=== PATIENT | female | born 1985 | race Caucasian/White ===

== ENCOUNTER 2016-04-10 06:31 | Emergency (ER) | payer OTHER ==
[~2016-04-10] VITALS: Ht 154.9 cm; Wt 67.2 kg
[2016-04-10 06:36] VITALS: TEMP 36.6
[2016-04-10] MEDS ORDERED: SODIUM CHLORIDE 0.9% 1000ML 1,000 ML IV STA (06:46)
[2016-04-10] MEDS ORDERED: KETOROLAC TROMETHAMINE 30 MG/ML VIAL IV STA (06:46)
[2016-04-10] MEDS ORDERED: ALBUT/IPRATROP 3MG/0.5MG NEB 3 ML VIAL INH STA (06:46)
--- NOTE | 2016-04-10 06:55 | EMERGENCY ROOM VISIT NOTE ---
History Report prepared by Esther: Ryan Barrera Under the Supervision of: Dr. Zen Sun D.O. First contact with patient: 06:40 Chief Complaint: RESPIRATORY PROBLEMS Stated Complaint: CHEST HURTS/BEEN SICK A COUPLE DAYS History of Present Illness The patient is a 30 year old female who presents to the Emergency Room with complaints of worsening respiratory problems that started this morning upon waking. She says that she woke up with bad chest pain that she describes as a tightness. Her right side hurts more than her left side. She also complains of shortness of breath. The patient notes that she has had cold symptoms for about a day or so. Her symptoms include a runny nose. She also had a bit of chest pain last night but this morning the pain is much worse. The patient has a bit of a cough. She said she had no problems sleeping last night, but she does sleep on her side. The patient's last menstrual period was 3 weeks ago. She uses control. She reports no major medical problems. The patient does not use tobacco products and does not drink alcohol. She has not had any surgeries. The patient does not have a history of clots in her lungs. Source of History: patient Onset: Upon waking this morning Position: other (global - respiratory problems) Quality: other (tightness) Timing: worsening Associated Symptoms: + SOB, + chest pain (right side more than left), + cough Note: Associated symptoms: Cold symptoms including runny nose. Review of Systems See HPI for pertinent positives & negatives. A total of 10 systems reviewed and were otherwise negative. Past Medical & Surgical Medical Problems: (1) Acute sinusitis (2) Urinary tract infection (3) Varicose vein of leg Surgical Problems: (1) No significant past surgical history Family History Cancer Diabetes mellitus Gallbladder disease Stroke Social History Smoking Status: Never Smoker Alcohol Use: none Drug Use: none Marital Status: Housing Status: lives with family Occupation Status: employed Current/Historical Medications Scheduled Albuterol Hfa (Ventolin Hfa), 1 PUFF INH Q4 Control Pills ( Control Pills), 1 TAB PO QPM Lorazepam (Ativan), 0.5 MG PO PRN UD Scheduled PRN Pantoprazole (Protonix), 20 MG PO DAILY PRN for ACID REFLUX Allergies Coded Allergies: No Known Allergies (Unverified , 04/10/16) Physical Exam Vital Signs Date Time Temp Pulse Resp B/P Pulse Ox O2 Delivery O2 Flow Rate FiO2 04/10/16 08:46 82 17 113/56 99 Room Air 04/10/16 07:06 100 Room Air 04/10/16 07:06 82 18 135/70 99 Room Air 04/10/16 07:04 99 Room Air 04/10/16 06:50 83 04/10/16 06:44 Room Air 04/10/16 06:36 36.6 79 20 125/74 100 Room Air Physical Exam GENERAL: Patient is awake, alert, somewhat anxious appearing and uncomfortable. EYES: The conjunctivae are clear. The pupils are round and reactive. EARS, NOSE, MOUTH AND THROAT: The nose is without any evidence of any deformity. Mucous membranes are moist tongue is midline NECK: The neck is nontender and supple. RESPIRATORY: There was splinting respirations noted. No tachypnea or conversational dyspnea was noted. There was faint wheezing noted in right upper lung field. CARDIOVASCULAR: Regular rate and rhythm noted there no murmurs rubs or gallops normal S1 normal S2 GASTROINTESTINAL: The abdomen is soft. Bowel sounds are present in all quadrants. Abdomen is nontender MUSCULOSKELETAL/EXTREMITIES: There is no evidence of gross deformity full range of motion is noted in the hips and shoulders SKIN: There is no obvious evidence of any rash. There are no petechiae, pallor or cyanosis noted. NEUROLOGIC: Patient is awake alert and oriented x3. Medical Decision & Procedures ER Provider Diagnostic Interpretation: X ray results and stated below per my interpretation and radiology interpretation. Other radiology results per my review and radiologist interpretation: CHEST ONE VIEW PORTABLE CLINICAL HISTORY: Shortness of breath. Right-sided chest pain. Respiratory distress. COMPARISON STUDY: No previous studies for comparison. FINDINGS: Lung volumes are normal. Lungs are clear. There is no pneumothorax or pleural effusion. Cardiac size is normal. Mediastinal contours are normal. There is no evidence of pulmonary edema. IMPRESSION: No acute cardiopulmonary findings. Electronically signed by: Mauricio Wahl M.D. 04/10/2016 7:02 AM CHEST CTA for PULMONARY ARTERIES CT DOSE: 519.00 mGycm HISTORY: Short of breath. Right-sided chest pain. TECHNIQUE: Multiaxial CT images of the chest were performed following the intravenous administration of contrast to evaluate the pulmonary arteries. Maximal intensity projection images were also obtained. COMPARISON STUDY: Chest 04/10/2016. FINDINGS: There is a normal caliber thoracic aorta with no evidence for dissection. There is no evidence for pulmonary embolus. No pleural effusions. No pneumothorax. The liver and spleen are unremarkable. No mediastinal or hilar lymphadenopathy. The central airways are patent. The lungs are clear. IMPRESSION: No evidence for pulmonary embolus. Electronically signed by: Aj Juárez M.D. 04/10/2016 8:12 AM Laboratory Results 04/10/16 06:45 Red Blood Count 4.54, Mean Corpuscular Volume 86.8, Mean Corpuscular Hemoglobin 30.4, Mean Corpuscular Hemoglobin Concent 35.0, Mean Platelet Volume 10.1, Neutrophils (%) (Auto) 70.3, Lymphocytes (%) (Auto) 17.4, Monocytes (%) (Auto) 9.1, Eosinophils (%) (Auto) 2.8, Basophils (%) (Auto) 0.3, Neutrophils # (Auto) 6.07, Lymphocytes # (Auto) 1.50, Monocytes # (Auto) 0.79, Eosinophils # (Auto) 0.24, Basophils # (Auto) 0.03 04/10/16 06:45 Test 04/10/16 06:45 04/10/16 07:08 04/10/16 07:43 04/10/16 07:52 White Blood Count 8.64 K/uL (4.8-10.8) Red Blood Count 4.54 M/uL (4.2-5.4) Hemoglobin 13.8 g/dL (12.0-16.0) Hematocrit 39.4 % (37-47) Mean Corpuscular Volume 86.8 fL (80-100) Mean Corpuscular Hemoglobin 30.4 pg (25-34) Mean Corpuscular Hemoglobin Concent 35.0 g/dl (32-36) Platelet Count 207 K/uL (130-400) Mean Platelet Volume 10.1 fL (7.4-10.4) Neutrophils (%) (Auto) 70.3 % Lymphocytes (%) (Auto) 17.4 % Monocytes (%) (Auto) 9.1 % Eosinophils (%) (Auto) 2.8 % Basophils (%) (Auto) 0.3 % Neutrophils # (Auto) 6.07 K/uL (1.4-6.5) Lymphocytes # (Auto) 1.50 K/uL (1.2-3.4) Monocytes # (Auto) 0.79 K/uL (0.11-0.59) Eosinophils # (Auto) 0.24 K/uL (0-0.5) Basophils # (Auto) 0.03 K/uL (0-0.2) RDW Standard Deviation 40.0 fL (36.4-46.3) RDW Coefficient of Variation 12.6 % (11.5-14.5) Immature Granulocyte % (Auto) 0.1 % Immature Granulocyte # (Auto) 0.01 K/uL (0.00-0.02) Prothrombin Time 10.0 SECONDS (9.0-12.0) Prothromb Time International Ratio 0.9 (0.9-1.1) Activated Partial Thromboplast Time 26.2 SECONDS (21.0-31.0) Partial Thromboplastin Ratio 1.0 D-Dimer 790 ug/L FEU (0-500) Anion Gap 8.0 mmol/L (3-11) Est Creatinine Clear Calc Drug Dose 76.8 ml/min Estimated GFR () 94.9 Estimated GFR (Non- 81.9 BUN/Creatinine Ratio 17.6 (10-20) Calcium Level 8.7 mg/dl (8.5-10.1) Total Bilirubin 0.4 mg/dl (0.2-1) Aspartate Amino Transf (AST/SGOT) 8 U/L (15-37) Alanine Aminotransferase (ALT/SGPT) 16 U/L (12-78) Alkaline Phosphatase 63 U/L (45-117) Total Creatine Kinase 58 U/L (26-192) Creatine Kinase MB < 0.5 ng/ml (0.5-3.6) Creatine Kinase MB Ratio (0-3.0) Troponin I < 0.015 ng/ml (0-0.045) Total Protein 7.4 gm/dl (6.4-8.2) Albumin 3.8 gm/dl (3.4-5.0) Globulin 3.6 gm/dl (2.5-4.0) Albumin/Globulin Ratio 1.1 (0.9-2) Human Chorionic Gonadotropin, Qual NEG (NEG) Influenza Type A Antigen Neg for Influ A (NEG) Influenza Type B Antigen Neg for Influ B (NEG) Urine Color YELLOW Urine Appearance CLEAR (CLEAR) Urine pH 6.0 (4.5-7.5) Urine Specific [place] 1.007 (1.000-1.030) Urine Protein NEG (NEG) Urine Glucose (UA) NEG (NEG) Urine Ketones NEG (NEG) Urine Occult Blood NEG (NEG) Urine Nitrite NEG (NEG) Urine Bilirubin NEG (NEG) Urine Urobilinogen NEG (NEG) Urine Leukocyte Esterase NEG (NEG) Bedside Urine Test NEG (NEG) Laboratory results per my review. Medications Administered Medications (Trade) Dose Ordered Sig/Kandace Route Start Time Stop Time Status Last Admin Dose Admin Sodium Chloride (Nss 1000ml) 1,000 ml @ 999 mls/hr Q1H1M STAT IV 04/10/16 06:46 04/10/16 07:46 DC 04/10/16 06:53 999 MLS/HR Albuterol/ Ipratropium (Duoneb) 3 ml NOW STAT INH 04/10/16 06:46 04/10/16 06:48 DC 04/10/16 06:53 3 ML Ketorolac Tromethamine (Toradol Inj) 30 mg NOW STAT IV 04/10/16 06:46 04/10/16 06:48 DC 04/10/16 06:53 30 MG ECG Indication: SOB/dyspnea Rate (beats per minute): 72 Rhythm: normal sinus Findings: no ectopy, other (no acute ST segment abnormalities) Comparison ECG Date: no prior available ED Course 0641: The patient was evaluated in room A2. A complete history and physical examination were performed. 0646: Ordered Toradol Inj 30 mg IV, Duoneb 3 ml INH, NSS 1000 ml @ 999 mls/hr IV. 0826: I reevaluated the patient and she is resting comfortably. The patient verbally expressed understanding and agreement of the treatment plan. The patient will be discharged. Medical Decision Differential diagnosis: Etiologies such as infections, reactive airway disease, pneumonia, pneumothorax , COPD, CHF, cardiac ischemia, pulmonary embolism, musculoskeletal, gastrointestinal, as well as others were entertained. Nursing notes reviewed. The patient is a 30-year-old female who presented to the emergency department for an evaluation of right-sided chest pain. The pain appear pleuritic in nature. The patient appeared to be in significant pain. She does have some risk factors for venous thromboembolic disease. The patient had an elevated d-dimer so a CT the chest was ordered. CT the chest did not show any signs of pulmonary embolism. The patient was treated with DuoNeb IV fluids as well as IV pain medication in the department. On subsequent reevaluation she was somewhat improved. I discussed the patient's laboratory and radiographic studies with her. She was encouraged to rest and avoid any strenuous activity. She was encouraged to continue all medications as prescribed. She was also encouraged to follow-up with her primary care physician for further evaluation but return to the emergency department immediately if symptoms change worsen or if the need arises. Impression Primary Impression: Right-sided chest pain Additional Impression: Pleurisy Scribe Attestation The scribe's documentation has been prepared under my direction and personally reviewed by me in its entirety. I confirm that the note above accurately reflects all work, treatment, procedures, and medical decision making performed by me. Departure Information Dispostion Home / Self-Care Prescriptions Albuterol Hfa (VENTOLIN HFA) 200 Puffs/99944 Mcg Aers 1 PUFF INH Q4, #1 INHALER Prov: Zne Sun DO 04/10/16 Referrals Hector Garza DO (PCP) Forms HOME CARE DOCUMENTATION FORM, IMPORTANT VISIT INFORMATION, WORK / SCHOOL INSTRUCTIONS Patient Instructions A Signature Page, ED Chest Pain Pleurisy, [facility] Additional Instructions Call your family to schedule a follow-up appointment. Continue all medications as prescribed. Continue using Motrin and Tylenol as directed for pain.
[2016-04-10 06:58] LABS: BASO % 0.3 %; BASO ABS # 0.03 K/uL (0-0.2); COMPLETE YES; EOS % 2.8 %; HEMATOCRIT 39.4 % (37-47); IG% 0.1 %; LYMPH % 17.4 %; MEAN CELL VOLUME 86.8 fL (80-100); MEAN CORPUSCULAR HEMOGLOBIN 30.4 pg (25-34); MEAN PLATELET VOLUME 10.1 fL (7.4-10.4); MONO % 9.1 %; NEUT % 70.3 %; PLATELET COUNT 207 K/uL (130-400); RED BLOOD COUNT 4.54 M/uL (4.2-5.4); WHITE BLOOD COUNT 8.64 K/uL (4.8-10.8)
--- NOTE | 2016-04-10 07:04 | DIAGNOSTIC IMAGING REPORT ---
CHEST ONE VIEW PORTABLE CLINICAL HISTORY: Shortness of breath. Right-sided chest pain. Respiratory distress. COMPARISON STUDY: No previous studies for comparison. FINDINGS: Lung volumes are normal. Lungs are clear. There is no pneumothorax or pleural effusion. Cardiac size is normal. Mediastinal contours are normal. There is no evidence of pulmonary edema. IMPRESSION: No acute cardiopulmonary findings. Electronically signed by: Mauricio Wahl M.D. 04/10/2016 7:02 AM
[2016-04-10 07:06] VITALS: O2SAT 100; Ht 154.9 cm; Wt 67.2 kg
[2016-04-10 07:08] LABS: INR 0.9 (0.9-1.1)
[2016-04-10 07:22] LABS: BLOOD UREA NITROGEN 16 mg/dl (7-18); BUN/CREATININE RATIO 17.6 (10-20); CALCIUM 8.7 mg/dl (8.5-10.1); CARBON DIOXIDE 26 mmol/L (21-32); CHLORIDE 106 mmol/L (98-107); CREATININE 0.93 mg/dl (0.60-1.20); GLUCOSE 87 mg/dl (70-99); POTASSIUM 3.8 mmol/L (3.5-5.1); SODIUM 140 mmol/L (136-145)
[2016-04-10 07:25] LABS: PREG INTERNAL NEGATIVE QC NEG CLEAR BACKGROUND; PREG INTERNAL POSITIVE QC POS CONTROL LINE
[2016-04-10 07:29] LABS: ALB/GLOB RATIO 1.1 (0.9-2); ALKALINE PHOSPHATASE 63 U/L (45-117); ALT/SGPT 16 U/L (12-78); AST/SGOT 8 U/L (15-37)
[2016-04-10] MEDS ORDERED: OPTIRAY 320 IV PRN (07:45)
[2016-04-10 08:04] LABS: URINE APPEARANCE CLEAR (CLEAR); URINE BILIRUBIN NEG (NEG); URINE COLOR YELLOW; URINE NITRITE NEG (NEG); URINE SPECIFIC GRAVITY 1.007 (1.000-1.030); UROBILINOGEN NEG (NEG)
[2016-04-10 08:06] LABS: MANUAL MICROSCOPIC REQUIRED? NO; REVIEW REQ? NO
--- NOTE | 2016-04-10 08:14 | DIAGNOSTIC IMAGING REPORT ---
CHEST CTA for PULMONARY ARTERIES CT DOSE: 519.00 mGycm HISTORY: Short of breath. Right-sided chest pain. TECHNIQUE: Multiaxial CT images of the chest were performed following the intravenous administration of contrast to evaluate the pulmonary arteries. Maximal intensity projection images were also obtained. COMPARISON STUDY: Chest 04/10/2016. FINDINGS: There is a normal caliber thoracic aorta with no evidence for dissection. There is no evidence for pulmonary embolus. No pleural effusions. No pneumothorax. The liver and spleen are unremarkable. No mediastinal or hilar lymphadenopathy. The central airways are patent. The lungs are clear. IMPRESSION: No evidence for pulmonary embolus. Electronically signed by: Aj Juárez M.D. 04/10/2016 8:12 AM
[2016-04-10] MEDS ORDERED: VNTHFA/IN INH (08:24)
[2016-04-10 08:46] VITALS: BP 113/56; PULSE 82; O2SAT 99
[2016-04-10] MEDS ORDERED: BCPILLS PO (22:55)
[2016-04-10] MEDS ORDERED: PRT/20 PO (23:03)
[2016-04-10] MEDS ORDERED: LORA-741 PO (23:03)
== END 2016-04-10 08:52 | disposition home or self-care (01) ==
LOC: C.EDB 06:33 → C.EDA 08:52
DX: R09.1 Pleurisy (principal); R07.9 Chest pain, unspecified; Z87.440 Personal history of urinary (tract) infections; Z86.19 Personal history of other infectious and parasitic diseases; Z80.9 Family history of malignant neoplasm, unspecified; Z83.3 Family history of diabetes mellitus; Z83.79 Family history of other diseases of the digestive system; Z82.3 Family history of stroke

== ENCOUNTER → 2017-05-15 | Outpatient (CLI) | payer OTHER ==
[~2017-05-15] MED LIST: BCPILLS PO; LORA-741 PO; PRT/20 PO
== END | disposition home or self-care (01) ==
LOC: C.PAPS 09:52
PROVIDERS: ATTEND Obstetrics & Gynecology
DX: Z12.4 Encounter for screening for malignant neoplasm of cervix (principal)

== ENCOUNTER → 2017-11-12 | Outpatient (CLI) | payer OTHER | END | disposition home or self-care (01) | LOC: C.LABSPEC 16:04 | PROVIDERS: ATTEND Obstetrics & Gynecology | DX: Z20.2 Contact with and (suspected) exposure to infections with a predominantly sexual mode of transmission (principal) ==

== ENCOUNTER 2022-03-16 15:42 | Inpatient (IN) ==
[2022-03-16] MEDS ORDERED: LIDOCAINE 1% LOCAL 20 ML VIAL INFIL PRN (19:28)
[2022-03-16] MEDS ORDERED: OXYTOCIN 30 UNITS/500 ML BAG IV PRN (19:28)
[2022-03-16] MEDS ORDERED: SODIUM CHLORIDE 0.9% 250 ML IV PRN (19:33)
[2022-03-16] MEDS ORDERED: miSOPROStoL 50 MCG TAB PO ONE (19:57)
[2022-03-16 20:06] LABS: Hematocrit (blood only) 32.4 % (34.1-44.9); Hemoglobin 11.5 g/dl (12.0-16.0); Mean Corpuscular Hemoglobin 30.3 pg (25.0-34.0); Mean Corpuscular Hgb Conc 35.5 g/dL (32.0-36.0); Mean Corpuscular Volume 85.3 fL (80.0-100.0); Mean Platelet Volume 10.6 fL (9.4-12.3); Platelet Count 161 K/uL (130-400); RDW Coefficient of Variation 14.5 % (11.5-14.5); RDW Standard Deviation 44.7 fL (36.4-46.3); White Blood Count 8.05 K/ul (4.8-10.8)
[2022-03-17] MEDS: LACTATED RINGER'S 1,000 ML IV PRN ×2 (00:33→02:10)
[2022-03-17] MEDS ORDERED: SODIUM CHLORIDE 0.9% INJ 10 ML VIAL ONE (00:36)
[2022-03-17] MEDS ORDERED: BUPIVACAINE 0.25% 30 ML VIAL ONE (00:36)
[2022-03-17] MEDS ORDERED: NALOXONE HCL 1 MG in SODIUM CHLORIDE 0.9% 1000ML 1,000 ML IV PRN (00:36)
[2022-03-17] MEDS ORDERED: NALBUPHINE HCL INJ 10 MG/ML AMP IV PRN (00:36)
[2022-03-17] MEDS ORDERED: diphenhydrAMINE 50 MG/ML VIAL IV PRN (00:36)
[2022-03-17] MEDS ORDERED: NALOXONE HCL 0.4 MG/1 ML VIAL/CARP IV PRN (00:36)
[2022-03-17] MEDS ORDERED: ePHEDrine sulfate 50 MG/ML AMP IV PRN (00:36)
[2022-03-17] MEDS ORDERED: ePHEDrine sulfate 50 MG/ML AMP ONE (00:36)
[2022-03-17] MEDS ORDERED: fentaNYL 2MCG/ML ROPIVACAINE 1.25MG/ML 100 ML BAG EPI PRN (00:36)
[2022-03-17] MEDS ORDERED: fentaNYL citrate 100 MCG/2 ML VIAL ONE (00:36)
[2022-03-17] MEDS ORDERED: fentaNYL 2MCG/ML ROPIVACAINE 1.25MG/ML 100 ML BAG EPI ONE (00:36)
[2022-03-17] MEDS ORDERED: LIDOCAINE 2%/EPINEPHRINE 1:200,000 20 ML SDV ONE (00:36)
[2022-03-17] MEDS ORDERED: ONDANSETRON INJ 2 MG/ML 2 ML VIAL IV PRN (00:36)
--- NOTE | 2022-03-17 00:36 | Anesthesiology Consultation ---
Date of Service March 17, 2022 Assessment & Plan ASA ASA2 Proposed Anesthesia Anesthesia Type: Labor Epidural Risk / Benefits Reviewed With: PT / POA / Parent / Guardian, Accepts Plan and Informed Consent Obtained History Height/Weight Height: 5 ft 2 in Weight: 94.347 kg Allergies Allergy/AdvReac Type Severity Reaction Status Date / Time No Known Allergies Allergy Verified 03/02/22 10:42 Medications Home Medications Medication Instructions Recorded Confirmed Last Taken loratadine 10 mg tablet (Claritin) 10 mg PO DAILY 03/02/22 03/16/22 03/16/22 08:00 [id number] 1 mg 1 tab PO DAILY 03/02/22 03/16/22 03/16/22 12:00 tablet Active Medications Generic Name Dose Route Start Last Admin Trade Name Freq PRN Reason Stop Dose Admin Lactated Ringer's 1,000 mls @ 125 mls/hr 03/16/22 19:28 03/17/22 00:33 Lr IV 03/18/22 19:27 999 mls/hr .Q8H PRN Administration L&D Protocol Protocol Past Medical History Medical History Anxiety GERD (gastroesophageal reflux disease) Hx of migraines IBS (irritable bowel syndrome) Varicose vein of leg Exercise / Class Metabolic Activity II 4-5 Yardwork/Stairs/Walk up hill Past Family History Family History Sister Crohn's disease Grandfather (Paternal) Family history of diabetes mellitus Grandmother (Maternal) Liver cancer Denies family history of Colorectal cancer Ulcerative colitis Past Surgical History Surgical History [place] teeth removed Past Anesthesia History No Hx of Anesthesia Complications and No Family Hx of Anesthesia Complications History of PONV No Hx of PONV and No Hx of Motion Sickness Social History Smoking Status: Never smoker Hx Alcohol Use: No Hx Substance Use: No substance use type: does not use Review of Systems denies fever/cough/ colds/ chest pain/ SOB/ BLANCA denies BLANCA Physical Exam Vital Signs Last Vital Signs Temp 36.7 C 03/17/22 00:30 Pulse 106 H 03/17/22 01:19 Resp 18 03/16/22 19:34 BP 123/67 03/17/22 01:19 Pulse Ox 96 03/17/22 01:16 ENMT Mouth: no TMJ abnormality and no dentition abnormality Thyromental Distance: > or= 3.5 Finger Breadths Mallampati Class: II Neck neck extension not limited Respiratory normal respiratory effort; no respiratory distress Auscultation: lungs clear to auscultation bilaterally Cardiovascular Rate/Rhythm: regular rate and regular rhythm Neurologic moves all extremities Psychiatric Orientation: alert and oriented x 3 Testing Laboratory Results 03/16/22 19:46 Blood Type O Positive 03/16/22 19:46 Antibody Screen NEGATIVE 03/16/22 19:46
[2022-03-17] MEDS ORDERED: OXYTOCIN 30 UNITS/500 ML BAG IV PRN (05:32)
[2022-03-17] MEDS ORDERED: ACETAMINOPHEN 325 MG TAB PO PRN (05:32)
[2022-03-17] MEDS ORDERED: BENZOCAINE 20% AER SPR 82.5 GM CAN EXT PRN (05:32)
[2022-03-17] MEDS ORDERED: oxyCODONE/ACETAMINOPHEN 5mg/325mg TAB PO PRN (05:32)
[2022-03-17] MEDS ORDERED: ACETAMINOPHEN W/CODEINE #3 1 TAB PO PRN (05:32)
[2022-03-17] MEDS ORDERED: HYDROCORTISONE ACETATE 25 MG SUPP PR PRN (05:32)
[2022-03-17] MEDS ORDERED: DIPHTHERIA/TETANUS/PERTUSSIS 0.5 ML SYR/VIAL IM ONE (05:32)
[2022-03-17] MEDS ORDERED: METHYLERGONOVINE MALEATE 0.2 MG/ML AMP IM ONE (05:32)
[2022-03-17] MEDS: IBUPROFEN 600 MG TAB PO PRN ×3 (06:06→20:16)
--- NOTE | 2022-03-17 06:57 | Delivery Summary ---
DELIVERY NOTE: She was admitted for induction of labor. She is a 3, para 3, blood type O po sitive, group B strep negative, admitted with estimated weight of over 8-1/2 pounds. On admiss ion, she was about 3 cm dilated. She was given one tablet of p.o. Cytotec 50 mcg and went into labor . About 4 hours later, she requested to receive epidural. She obtained good pain relief. After the epidural, membranes were ruptured surgically. Fluid was clear. She then went to full dilatation. Wi th about 3 pushes, pushed out a live male via direct occiput anterior position over an intact perineum. was suctioned through the mouth and the nose. Shoulders were delivered without dif ficulty. Cord was allowed to pulse for 1 minute, then clamped and cut. Cord blood was taken. We duran d a little difficulty removing the placenta. We had to massage the patient. Eventually, the placenta came out intact. We gave IM Methergine and IV Pitocin. Estimated blood loss was 100 mL. The patien t tolerated the procedure well. The perineum was intact. Job ID: [id number]
--- NOTE | 2022-03-17 07:17 | Anesthesia Procedure Note ---
Date of Service March 17, 2022 Anesthesia Post Epidural Note Vital Signs Vital Signs: Temp Pulse Resp BP Pulse Ox 36.9 C 90 18 132/63 93 03/17/22 04:00 03/17/22 07:00 03/17/22 06:59 03/17/22 07:00 03/17/22 05:33 Pain Intensity Bilateral Abdomen: Pain Intensity: 5 Notes Mental Status: alert / awake / arousable Nausea / Vomiting: adequately controlled Pain: adequately controlled Airway Patency, RR, SpO2: stable & adequate BP & HR: stable & adequate Hydration State: stable & adequate Neuraxial Anesthesia: was administered and sensory block is resolving Anesthetic Complications: no major complications apparent and Pt Satisfied with anesthetic care Epidural: Removed without complications and With tip intact
[2022-03-17] MEDS: PRENATAL VITAMIN 1 TAB PO SCH (08:40)
[2022-03-17] MEDS: DOCUSATE SODIUM 100 MG CAP PO SCH ×2 (08:40→20:16)
--- NOTE | 2022-03-17 12:23 | Obstetrical Progress Note ---
Date of Service March 17, 2022 Assessment & Plan Admission and Anticipated Discharge Date Admission Date: March 16, 2022 Subjective abdomen soft and non tender no calf tenderness ambulating well vaginal bleeding scant hgb 11.5 Results & Data ([facility]) Vital Signs (Past 12 Hours) Vital Signs Temp Pulse Pulse Resp BP BP Pulse Ox 03/17/22 08:45 37.0 C 90 16 145/93 H 95 03/17/22 06:59 86 18 03/17/22 06:30 86 18 03/17/22 06:15 91 H 18 03/17/22 06:00 89 18 03/17/22 05:45 89 18 03/17/22 05:30 89 18 03/17/22 08:03 36.9 C 93 H 20 123/70 03/17/22 08:00 93 H 124/78 03/17/22 07:30 94 H 122/83 03/17/22 07:00 90 132/63 03/17/22 06:29 86 137/74 03/17/22 06:17 86 135/66 03/17/22 06:16 91 H 171/117 H 03/17/22 06:00 89 178/75 H 03/17/22 05:45 96 H 159/75 H 03/17/22 05:33 100 H 93 03/17/22 05:31 89 94 03/17/22 05:28 90 94 03/17/22 05:26 94 H 94 03/17/22 05:21 92 H 94 03/17/22 05:16 94 H 93 03/17/22 05:15 96 H 133/73 03/17/22 05:13 91 H 94 03/17/22 05:11 100 H 95 03/17/22 05:08 106 H 93 03/17/22 05:06 106 H 96 03/17/22 05:01 91 H 85 L 03/17/22 05:02 122 H 94 03/17/22 05:00 98 H 131/84 03/17/22 04:56 95 H 93 03/17/22 04:57 96 H 94 03/17/22 04:51 91 H 100 03/17/22 04:46 94 H 97 03/17/22 04:45 96 H 136/83 03/17/22 04:41 93 H 97 03/17/22 04:36 96 H 97 03/17/22 04:31 95 H 127/76 96 03/17/22 04:30 18 03/17/22 04:30 18 03/17/22 04:29 105 H 93 03/17/22 04:26 99 H 96 03/17/22 04:21 93 H 98 03/17/22 04:16 97 03/17/22 04:16 90 03/17/22 04:00 18 03/17/22 04:00 36.9 C 18 03/17/22 04:16 95 H 115/69 93 03/17/22 04:11 99 H 96 03/17/22 04:06 99 H 97 03/17/22 04:03 95 H 91 03/17/22 04:01 92 H 96 03/17/22 03:56 98 H 94 03/17/22 03:54 79 94 03/17/22 03:51 82 94 03/17/22 03:46 86 94 03/17/22 03:47 87 92/53 L 03/17/22 03:42 77 94 03/17/22 03:41 80 94 03/17/22 03:36 80 94 03/17/22 03:31 84 98 03/17/22 03:30 86 114/59 L 03/17/22 03:26 80 97 03/17/22 03:23 98 H 93 03/17/22 03:21 81 95 03/17/22 03:16 82 96 03/17/22 03:17 81 110/65 03/17/22 03:11 83 96 03/17/22 03:06 84 96 03/17/22 03:01 89 115/65 98 03/17/22 02:58 92 H 93 03/17/22 02:56 85 97 03/17/22 02:51 78 97 03/17/22 02:50 99 H 92 03/17/22 02:46 95 03/17/22 02:46 90 03/17/22 02:46 91 H 114/71 03/17/22 02:43 78 94 03/17/22 02:41 89 92 03/17/22 02:36 82 94 03/17/22 02:37 86 94 03/17/22 02:31 81 94 03/17/22 02:30 83 106/55 L 03/17/22 02:26 86 94 03/17/22 02:24 84 94 03/17/22 02:21 86 95 03/17/22 02:19 83 94 03/17/22 02:16 81 98 03/17/22 02:15 82 102/56 L 03/17/22 02:11 90 96 03/17/22 02:05 36.9 C 03/17/22 02:06 96 03/17/22 02:06 101 H 03/17/22 02:06 100 H 93 03/17/22 02:01 90 96 03/17/22 01:59 89 94 03/17/22 02:00 96 H 18 117/56 L 03/17/22 01:56 88 95 03/17/22 01:51 84 97 03/17/22 01:46 94 H 95 03/17/22 01:47 94 H 110/59 L 03/17/22 01:45 20 03/17/22 01:45 20 03/17/22 01:40 18 03/17/22 01:40 18 03/17/22 01:41 101 H 95 03/17/22 01:39 110 H 116/57 L 94 03/17/22 01:36 107 H 95 03/17/22 01:35 105 H 128/60 03/17/22 01:34 112 H 94 03/17/22 01:31 96 H 95 03/17/22 01:30 18 03/17/22 01:30 18 03/17/22 01:29 110 H 121/58 L 03/17/22 01:10 18 03/17/22 01:10 18 03/17/22 01:20 20 03/17/22 01:20 20 03/17/22 01:25 20 03/17/22 01:25 20 03/17/22 01:26 102 H 95 03/17/22 01:23 109 H 125/63 03/17/22 01:21 106 H 126/65 95 03/17/22 01:19 106 H 123/67 03/17/22 01:17 107 H 124/68 03/17/22 01:16 101 H 96 03/17/22 01:15 111 H 18 118/73 03/17/22 01:11 101 H 96 03/17/22 01:12 98 H 90 03/17/22 01:06 106 H 97 03/17/22 01:01 111 H 97 03/17/22 01:00 112 H 91 03/17/22 00:56 94 H 97 03/17/22 00:30 36.7 C 03/17/22 00:51 97 H 97 03/17/22 00:38 92 H 139/90 O2 Del Method 03/17/22 08:45 Room Air 03/17/22 06:59 03/17/22 06:30 03/17/22 06:15 03/17/22 06:00 03/17/22 05:45 03/17/22 05:30 03/17/22 08:03 03/17/22 08:00 03/17/22 07:30 03/17/22 07:00 03/17/22 06:29 03/17/22 06:17 03/17/22 06:16 03/17/22 06:00 03/17/22 05:45 03/17/22 05:33 03/17/22 05:31 03/17/22 05:28 03/17/22 05:26 03/17/22 05:21 03/17/22 05:16 03/17/22 05:15 03/17/22 05:13 03/17/22 05:11 03/17/22 05:08 03/17/22 05:06 03/17/22 05:01 03/17/22 05:02 03/17/22 05:00 03/17/22 04:56 03/17/22 04:57 03/17/22 04:51 03/17/22 04:46 03/17/22 04:45 03/17/22 04:41 03/17/22 04:36 03/17/22 04:31 03/17/22 04:30 03/17/22 04:30 03/17/22 04:29 03/17/22 04:26 03/17/22 04:21 03/17/22 04:16 03/17/22 04:16 03/17/22 04:00 03/17/22 04:00 03/17/22 04:16 03/17/22 04:11 03/17/22 04:06 03/17/22 04:03 03/17/22 04:01 03/17/22 03:56 03/17/22 03:54 03/17/22 03:51 03/17/22 03:46 03/17/22 03:47 03/17/22 03:42 03/17/22 03:41 03/17/22 03:36 03/17/22 03:31 03/17/22 03:30 03/17/22 03:26 03/17/22 03:23 03/17/22 03:21 03/17/22 03:16 03/17/22 03:17 03/17/22 03:11 03/17/22 03:06 03/17/22 03:01 03/17/22 02:58 03/17/22 02:56 03/17/22 02:51 03/17/22 02:50 03/17/22 02:46 03/17/22 02:46 03/17/22 02:46 03/17/22 02:43 03/17/22 02:41 03/17/22 02:36 03/17/22 02:37 03/17/22 02:31 03/17/22 02:30 03/17/22 02:26 03/17/22 02:24 03/17/22 02:21 03/17/22 02:19 03/17/22 02:16 03/17/22 02:15 03/17/22 02:11 03/17/22 02:05 03/17/22 02:06 03/17/22 02:06 03/17/22 02:06 03/17/22 02:01 03/17/22 01:59 03/17/22 02:00 03/17/22 01:56 03/17/22 01:51 03/17/22 01:46 03/17/22 01:47 03/17/22 01:45 03/17/22 01:45 03/17/22 01:40 03/17/22 01:40 03/17/22 01:41 03/17/22 01:39 03/17/22 01:36 03/17/22 01:35 03/17/22 01:34 03/17/22 01:31 03/17/22 01:30 03/17/22 01:30 03/17/22 01:29 03/17/22 01:10 03/17/22 01:10 03/17/22 01:20 03/17/22 01:20 03/17/22 01:25 03/17/22 01:25 03/17/22 01:26 03/17/22 01:23 03/17/22 01:21 03/17/22 01:19 03/17/22 01:17 03/17/22 01:16 03/17/22 01:15 03/17/22 01:11 03/17/22 01:12 03/17/22 01:06 03/17/22 01:01 03/17/22 01:00 03/17/22 00:56 03/17/22 00:30 03/17/22 00:51 03/17/22 00:38
[2022-03-18] MEDS: IBUPROFEN 600 MG TAB PO PRN ×3 (00:40→12:10)
[2022-03-18 07:36] LABS: Hematocrit (blood only) 30.2 % (34.1-44.9); Hemoglobin 10.4 g/dl (12.0-16.0); Mean Corpuscular Hemoglobin 30.2 pg (25.0-34.0); Mean Corpuscular Hgb Conc 34.4 g/dL (32.0-36.0); Mean Corpuscular Volume 87.8 fL (80.0-100.0); Mean Platelet Volume 10.1 fL (9.4-12.3); Platelet Count 128 K/uL (130-400); RDW Coefficient of Variation 14.6 % (11.5-14.5); RDW Standard Deviation 46.5 fL (36.4-46.3); Red Blood Count 3.44 M/uL (3.93-5.22); White Blood Count 8.54 K/ul (4.8-10.8)
[2022-03-18] MEDS: DOCUSATE SODIUM 100 MG CAP PO SCH (07:52)
[2022-03-18] MEDS: PRENATAL VITAMIN 1 TAB PO SCH (07:52)
--- NOTE | 2022-03-18 09:27 | Obstetrical Progress Note ---
Date of Service March 18, 2022 Assessment & Plan Admission and Anticipated Discharge Date Admission Date: March 16, 2022 Subjective abdomen soft and non tender ambulating well no calf tenderness vaginal bleeding scant hgb 10.4 Results & Data ([facility]) Vital Signs (Past 12 Hours) Vital Signs Temp Pulse Pulse Resp BP Pulse Ox O2 Del Method 03/18/22 07:25 36.6 C 73 18 110/67 98 Room Air 03/18/22 04:15 36.8 C 68 18 125/82 99 Room Air 03/18/22 00:15 36.6 C 84 18 127/75 98 Room Air
[2022-03-18] MEDS ORDERED: MEASLES, MUMPS & RUBELLA VIRUS VIAL SQ ONE (10:05)
[2022-03-18] MEDS ORDERED: bisacodyL 5 MG TABEC PO SCH (20:00)
[2022-03-19] MEDS ORDERED: bisacodyL 10 MG SUPP PR PRN (05:32)
== END 2022-03-18 13:05 | disposition home or self-care (01) | DRG 807 ==
LOC: 4S1 19:23 → 4E2 03-17 08:58